=== PATIENT | male | born 1985 | race Caucasian/White ===

== ENCOUNTER 2025-04-05 11:43 | Day surgery (SDC) | payer OTHER ==
[2025-04-05] VITALS (10 sets, daily range): BP systolic 100–132; BP diastolic 60–87
[~2025-04-05] VITALS: Ht 175.3 cm; Wt 107.5 kg
[2025-04-05] MEDS ORDERED: Tranexamic Acid 100 ML IV SCH (12:40)
[2025-04-05] MEDS ORDERED: CeFAZolin Sodium 2,000 MG in NS 100 ML IV SCH (12:40)
--- NOTE | 2025-04-05 12:56 | NUR ---
Ambulatory in Day SurgeryPre-Op teaching done. Pt verbalizes understanding. History, Chart, Medications and Allergies reviewed before start of procedure.Patient confirms NPO status and agrees with scheduled surgery. Patient States Post-Procedure ride home has been arranged.
[2025-04-05] MEDS ORDERED: FentaNYL Citrate 50 MCG/ML 2 ML Injection ONE ×2 (13:47→14:15)
[2025-04-05] MEDS ORDERED: Midazolam HCl 1MG / ML 2ML Vial ONE (13:47)
[2025-04-05] MEDS ORDERED: Bupivacaine 0.5% HCl 5 MG/ML 30MLVIAL ONE (14:02)
--- NOTE | 2025-04-05 14:10 | NUR ---
1400: TIME OUT PREFORMED W/MO. 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 O2 @2L/MIN VIA NC. CONT. PULSE OX HR 50'S, 02 SAT'S 96-100%. PT TOW
[2025-04-05] MEDS ORDERED: Ondansetron HCl 2 MG / ML 2ML Vial ONE (14:22)
[2025-04-05] MEDS ORDERED: Dexamethasone Sod Phos 10 MG/ML 1ML VIAL ONE (14:22)
[2025-04-05] MEDS ORDERED: Ketorolac Tromethamine 30mg Vial ONE (14:22)
[2025-04-05] MEDS ORDERED: FentaNYL Citrate 50 MCG/ML 2 ML Injection IV PRN ×2 (15:40→15:45)
[2025-04-05] MEDS ORDERED: Metoclopramide HCl 5MG / ML 2ML Vial IV PRN (15:40)
[2025-04-05] MEDS ORDERED: Albuterol 2.5 MG/3 ML VIAL INH PRN (15:40)
[2025-04-05] MEDS ORDERED: HYDROmorphone HCl/Pf 1MG SYR IV PRN (15:40)
[2025-04-05] MEDS ORDERED: Ondansetron HCl 2 MG / ML 2ML Vial IV PRN (15:40)
--- NOTE | 2025-04-05 17:44 | NUR ---
TO STEP POST PROCEDURE. RIGHT ARM WITH SLING/EVER WRAP. CDI. BLOCK WORKING WELL, DENIES PAIN. FINGERS PINK/WARM/DRY. PT ANXIOUS TO GO HOME, JAMES PO. DECLINES PAIN MEDICATION AT THIS TIME. NO SCRIPT NOTED, MD AWARE, TO CALL IN TO PHARMACY. PT EDUCATED TO REACH OUT TO MD FOR HOME PAIN MEDICATIONS IF NEEDED. VERBALIZED UNDERSTANDING. PT CALLED FRIEND FOR SLEEPING CAR SERVICE ATTENDANT. VERBALIZED UNDERSTANDING OF DC INSTRUCTIONS. PT INSTRUCTED TO AVOID STRESS/REMAIN IN SLING UNTIL CLEARED BY MD. CHANGED AT BEDSIDE WITH STEADY GAIT, AMBULATED TO BR, NURSE REMAINED AT SIDE FOR SAFETY. DC'D IV INTACT. DC'D VIA WC TO PRIVATE CAR WITH MECH[employer] PRODUCTS AND BELONGINGS.
== END 2025-04-05 17:30 | disposition home or self-care (01) ==
LOC: ORSCMMR 11:43 → EDSEX 11:43 → ORSCMMR 11:46
PROVIDERS: Orthopaedic Surgery Sports Medicine
PROC: 0LM30ZZ Reattachment of Right Upper Arm Tendon, Open Approach (ICD-10-PCS; principal; 2025-04-05 13:00)
DX: S46.211A Strain of muscle, fascia and tendon of other parts of biceps, right arm, initial encounter (principal)
CPT/HCPCS: C1713; J0690; J1100; J1885; J2250; J2405; J2704; J3010; J7120

== ENCOUNTER 2025-04-06 00:51 | Emergency (ER) | payer OTHER ==
[~2025-04-06] VITALS: Ht 175.3 cm; Wt 99.8 kg
[2025-04-06 01:35] LABS: BASOPHILS ABSOLUTE AUTO 0.01 K/mm3 (0.00-0.23); BASOPHILS PERCENT AUTO 0 % (0-2); EOSINOPHILS ABSOLUTE AUTO 0.00 K/mm3 (0.00-0.68); EOSINOPHILS PERCENT AUTO 0 % (0-6); Hematocrit 40.3 % (33.0-53.0); Hemoglobin 13.7 g/dL (11.5-17.5); IMMATURE GRAN ABSOLUTE AUTO 0.06 K/mm3 (0.00-0.10); IMMATURE GRAN PERCENT AUTO 1 % (0-1); LYMPHOCYTES ABSOLUTE AUTO 0.69 K/mm3 (0.84-5.20); LYMPHOCYTES PERCENT AUTO 6 % (21-46); MONOCYTES ABSOLUTE AUTO 0.40 K/mm3 (0.16-1.47); MONOCYTES PERCENT AUTO 3 % (4-13); Mean Corpuscular HGB Conc 34.0 g/dL (31.5-36.5); Mean Corpuscular Volume 83 fL (80-100); NEUTROPHILS ABSOLUTE AUTO 11.33 K/mm3 (1.96-9.15); NEUTROPHILS PERCENT AUTO 91 % (41-73); NRBC ABSOLUTE 0.00 K/mm3 (0.00-0.02); NRBC Auto 0.0 /100 WBC (0.0-0.2); Platelet Count 236 K/mm3 (150-400); RDW Coefficient Variation 13.4 % (11.7-14.2); RDW Standard Deviation 40.3 fL (35.1-46.3)
[2025-04-06 02:14] LABS: Alanine Aminotransfer (ALT/SGP 45 U/L (12-78); Albumin, Blood 4.0 g/dL (3.4-5.0); Albumin/Globulin Ratio 1.0 (0.8-1.8); Anion Gap 13 mmol/L (3-11); Aspartate Aminotrans (AST/SGOT 28 U/L (12-37); Bilirubin, Total 0.2 mg/dL (0.1-1.0); Blood Urea Nitrogen 25 mg/dL (8-24); CO2, Blood 21 mmol/L (21-32); Calcium, Blood 9.5 mg/dL (8.5-10.1); Chloride, Blood 106 mmol/L (98-108); Globulin, Blood 3.9 g/dL (2.2-4.0); Glucose, Blood 279 mg/dL (70-99); Potassium, Blood 4.2 mmol/L (3.5-5.5); Sodium, Blood 136 mmol/L (136-145); Total Protein, Blood 7.9 g/dL (6.4-8.2)
[2025-04-06 05:32] LABS: Creatinine, Blood 0.91 mg/dL (0.40-1.20)
== END 2025-04-06 04:38 | disposition home or self-care (01) ==
LOC: EDSEX 00:51 → ER 00:51
PROVIDERS: Emergency Medicine
DX: R06.82 Tachypnea, not elsewhere classified (principal); Z59.89 Other problems related to housing and economic circumstances
CPT/HCPCS: 80053; 85025; 85379; 99284